=== PATIENT | female | born 1995 | race Caucasian/White ===

== ENCOUNTER 2022-09-19 16:26 | Inpatient (IN) | payer SELFPAY ==
[2022-09-19] MEDS ORDERED: Nalbuphine HCl 10 MG/ 1ML Amp IVPUSH PRN (18:23)
[2022-09-19] MEDS ORDERED: Oxytocin/Lactated Ringers 10 UNIT/1,000 ML BAG IV SCH ×2 (18:30)
[2022-09-19] MEDS ORDERED: Misoprostol 25 MCG (1/4 of 100 MCG) Tab VAG ONE (18:45)
[2022-09-19] MEDS: Lactated Ringers 1,000 ML IV SCH (18:56)
[2022-09-19] MEDS ORDERED: Ampicillin 2 GM in Sodium Chloride 0.9% 100 ML IV ONE (19:00)
[2022-09-19] MEDS: Misoprostol 25 MCG (1/4 of 100 MCG) Tab VAG SCH (22:18)
[2022-09-19] MEDS: Ampicillin 1 GM in Sodium Chloride 0.9% 100 ML IV SCH (22:30)
[2022-09-20] MEDS ORDERED: Lidocaine 1.5% with EPINEPHrine 1:200,000 5 ML Amp ONE
[2022-09-20] MEDS ORDERED: Lidocaine 1% 10 ML MDV ONE
[2022-09-20] MEDS ORDERED: Sodium Chloride 0.9% 10 ML SDV ONE ×2
[2022-09-20] MEDS: Misoprostol 25 MCG (1/4 of 100 MCG) Tab VAG SCH (00:50)
[2022-09-20] MEDS: Lactated Ringers 1,000 ML IV SCH ×4 (03:27→15:58)
[2022-09-20] MEDS: Ampicillin 1 GM in Sodium Chloride 0.9% 100 ML IV SCH ×4 (03:28→15:22)
[2022-09-20] MEDS ORDERED: fentaNYL 100 MCG/2 ML SDV EPIDUR PRN (11:58)
[2022-09-20] MEDS ORDERED: diphenhydrAMINE 50 MG/ML SDV IVPUSH PRN (11:58)
[2022-09-20] MEDS ORDERED: Bupivacaine/fentaNYL/NS 100 ML Bag EPIDUR PRN (11:58)
[2022-09-20] MEDS ORDERED: ePHEDrine 50 MG/ML SDV IVPUSH PRN (11:58)
[2022-09-20] MEDS ORDERED: Benzocaine/Menthol 20%-0.5% Spray 78 GM Cannister TOP PRN (17:38)
[2022-09-20] MEDS ORDERED: Docusate Sodium 100 MG Cap PO PRN (17:38)
[2022-09-20] MEDS ORDERED: Acetaminophen 325 MG Tab PO PRN (17:38)
[2022-09-20] MEDS ORDERED: Witch Hazel Medicated Pads 40/Jar TOP PRN (17:38)
[2022-09-21] MEDS: Ibuprofen 600 MG Tab PO PRN ×2 (04:58→17:37)
[2022-09-21] MEDS ORDERED: Measles, Mumps & Rubella Vaccine 0.5 ML SDV SUBCUT ONE (16:38)
== END 2022-09-21 18:04 | disposition home or self-care (01) | DRG 807 ==
LOC: JD.OBCHECK 16:26 → JD.OB 16:33 → JD.OBCHECK 20:19 → OBSVTOIN 09-20 16:57 → JD.OB 09-20 16:58
PROVIDERS: ADMIT Obstetrics & Gynecology; ATTEND Obstetrics & Gynecology
PROC: 10E0XZZ Delivery of Products of Conception, External Approach (ICD-10-PCS; principal; 2022-09-20)
PROC: 10907ZC Drainage of Amniotic Fluid, Therapeutic from Products of Conception, Via Natural or Artificial Opening (ICD-10-PCS; 2022-09-20)
PROC: 3E0P7VZ Introduction of Hormone into Female Reproductive, Via Natural or Artificial Opening (ICD-10-PCS; 2022-09-20)
PROC: 3E033VJ Introduction of Other Hormone into Peripheral Vein, Percutaneous Approach (ICD-10-PCS; 2022-09-20)
PROC: 3E0R3BZ Introduction of Anesthetic Agent into Spinal Canal, Percutaneous Approach (ICD-10-PCS; 2022-09-20)
DX: O13.4 Gestational [pregnancy-induced] hypertension without significant proteinuria, complicating childbirth (principal); Z37.0 Single live birth; O99.824 Streptococcus B carrier state complicating childbirth; Z3A.37 37 weeks gestation of pregnancy; Z87.891 Personal history of nicotine dependence; O99.214 Obesity complicating childbirth
CPT/HCPCS: 36415; 51702; 59025; 59409; 82565; 82570; 83615; 84156; 84450; 84460; 84520; 84550; 85025; 86592; 86850; 86900; 86901; 90471; 90707; A9270-GY; J0290; J2590; J3010; J3490; J7120